=== PATIENT | male | born 1940 | race Caucasian/White ===

== ENCOUNTER 2017-03-16 14:07 | Inpatient (IN) | payer OTHER ==
[~2017-03-16] VITALS: Ht 190.5 cm; Wt 50.5 kg
[2017-03-16] MEDS ORDERED: NORVASC 5 MG TAB5 MG PO (20:35)
[2017-03-16] MEDS ORDERED: LORTAB 5-325 M1 EACH PO (20:35)
[2017-03-16] MEDS ORDERED: LIPITOR TAB 1010 MG PO (20:35)
[2017-03-16] MEDS ORDERED: ASPIRIN EC81 MG PO (20:35)
[2017-03-16] MEDS ORDERED: COREG 3.125M3.125 MG PO (20:36)
[2017-03-16] MEDS ORDERED: LISINOPRIL40 MG PO (20:36)
[2017-03-16] MEDS ORDERED: PROTONIX40 MG PO (20:37)
[2017-03-16] MEDS ORDERED: FLOMAX0.4 MG PO (20:37)
[2017-03-17 00:15] LABS: HEMOGLOBIN 14.9 gm/dl (14.0-17.5); RED BLOOD COUNT 5.01 M/UL (4.20-5.50); WHITE BLOOD COUNT 7.9 K/UL (4.5-11.0)
[2017-03-17 06:08] LABS: HEMOGLOBIN 12.8 gm/dl (14.0-17.5); RED BLOOD COUNT 4.35 M/UL (4.20-5.50); WHITE BLOOD COUNT 9.3 K/UL (4.5-11.0)
[2017-03-17 06:42] LABS: BUN/CREATININE RATIO 27 (0-10)
[2017-03-18 05:41] LABS: RED BLOOD COUNT 4.44 M/UL (4.20-5.50); WHITE BLOOD COUNT 8.4 K/UL (4.5-11.0)
[2017-03-18 05:58] LABS: BUN/CREATININE RATIO 25 (0-10)
[2017-03-19 05:29] LABS: HEMOGLOBIN 11.7 gm/dl (14.0-17.5); RED BLOOD COUNT 4.06 M/UL (4.20-5.50); WHITE BLOOD COUNT 9.8 K/UL (4.5-11.0)
[2017-03-19 05:47] LABS: BUN/CREATININE RATIO 22 (0-10)
[2017-03-20 07:22] LABS: HEMOGLOBIN 11.9 gm/dl (14.0-17.5); RED BLOOD COUNT 4.1 M/UL (4.20-5.50); WHITE BLOOD COUNT 9.8 K/UL (4.5-11.0)
[2017-03-20 07:40] LABS: BUN/CREATININE RATIO 14 (0-10)
[2017-03-21 06:07] LABS: HEMOGLOBIN 11.9 gm/dl (14.0-17.5); RED BLOOD COUNT 4.14 M/UL (4.20-5.50); WHITE BLOOD COUNT 8.8 K/UL (4.5-11.0)
[2017-03-21 06:22] LABS: BUN/CREATININE RATIO 16 (0-10)
[2017-03-25 04:50] LABS: HEMOGLOBIN 11.8 gm/dl (14.0-17.5); RED BLOOD COUNT 4.08 M/UL (4.20-5.50); WHITE BLOOD COUNT 8.6 K/UL (4.5-11.0)
[2017-03-25 05:07] LABS: BUN/CREATININE RATIO 19 (0-10)
== END 2017-03-25 17:07 | DRG 470 ==
LOC: M/S 14:07
PROVIDERS: Internal Medicine Infectious Disease; Orthopaedic Surgery; ADMIT Internal Medicine
PROC: 0SRR0JA Replacement of Right Hip Joint, Femoral Surface with Synthetic Substitute, Uncemented, Open Approach (ICD-10-PCS; principal; 2017-03-18 16:15)
DX: S72.011A Unspecified intracapsular fracture of right femur, initial encounter for closed fracture (principal); I69.354 Hemiplegia and hemiparesis following cerebral infarction affecting left non-dominant side; E44.0 Moderate protein-calorie malnutrition; E87.2 Acidosis; Z68.1 Body mass index [BMI] 19.9 or less, adult; I69.319 Unspecified symptoms and signs involving cognitive functions following cerebral infarction; F01.50 Vascular dementia, unspecified severity, without behavioral disturbance, psychotic disturbance, mood disturbance, and anxiety; I69.320 Aphasia following cerebral infarction; W18.30XA Fall on same level, unspecified, initial encounter; I10 Essential (primary) hypertension; E78.5 Hyperlipidemia, unspecified; K21.9 Gastro-esophageal reflux disease without esophagitis; Z91.81 History of falling; Y93.9 Activity, unspecified; Y92.009 Unspecified place in unspecified non-institutional (private) residence as the place of occurrence of the external cause; I48.0 Paroxysmal atrial fibrillation; I51.89 Other ill-defined heart diseases; R77.8 Other specified abnormalities of plasma proteins; Z79.82 Long term (current) use of aspirin; Z79.891 Long term (current) use of opiate analgesic; Z79.899 Other long term (current) drug therapy; Z87.891 Personal history of nicotine dependence
CPT/HCPCS: ECHO; 36415; 71010; 73501; 80048; 80053; 82550; 82553; 82607; 83735; 84100; 84439; 84443; 84484; 85025; 85027; 85610; 86850; 86900; 86901; 93005; 93306; 94640; 94664; 97110; 97530; 97535; C1713; C1776; J0690; J1650; J2270; J2370; J2405; J3370; J7120